=== PATIENT | male | born 1970 | race Caucasian/White ===

== ENCOUNTER 2023-11-25 13:51 | Emergency (ER) | payer MEDICAID, SELFPAY ==
[2023-11-25 14:13] VITALS: BP 144/79; PULSE 78; RESP 22; TEMP 36.6; O2SAT 98; BMI 29.8
[2023-11-25] MEDS: SIMETHICONE/SOD BICARB/CIT AC 1 EACH GRAN.EF.PK PO (15:08)
--- NOTE | 2023-11-25 17:16 | ED.GENADULT ---
HPI - General Adult General Date Seen: 11/25/23 Chief complaint: Difficulty Swallowing Stated complaint: Chicken piece stuck in throat-slight diff breath Time Seen by Provider: 11/25/23 14:58 History of Present Illness HPI narrative: This is a pleasant 53-year-old male presenting to the ER today with inability to swallow his oral secretions or any liquid or solid food. He was eating lunch today at about noon when he had a piece of chicken stuck. He can feel a foreign body sensation in his distal esophagus. Since then he has not been able to swallow. He is not really having any chest pain. No back pain. No pain in his throat. No trouble breathing. No coughing. No abdominal pain. He is generally healthy and not on any current medications. He does not take NSAIDs or ibuprofen. He recalls that he had an episode similar to this several years ago. He required endoscopy to remove the food bolus at that time. He was supposed to have an outpatient follow-up endoscopy for esophageal dilatation (apparently had a stricture), but by his own admission, he never followed up. He does not know of any previous diagnosis of GERD. It sounds like his previous food bolus was triggered by stricture rather than esophageal cancer. Related Data Previous Rx's ?Medication ?Instructions ?Recorded omeprazole 40 mg capsule,delayed 40 mg PO DAILY #30 caps 11/25/23 release Allergies Allergy/AdvReac Type Severity Reaction Status Date / Time No Known Drug Allergies Allergy Verified 11/25/23 14:15 Exam Narrative: Exam Narrative: Constitutional: Appears well-developed and well-nourished. Active. Polite. Protecting his airway. Phonation normal. Breathing easily. Non-toxic appearing. Spitting his oral secretions into an emesis bag because he cannot swallow his saliva. HENT: Initially over Head: Atraumatic. No signs of injury. Nose: No nasal discharge. Mouth/Throat: Mucous membranes are moist. Pharynx is normal. Tonsils symmetric. Uvula midline. Airway patent. Eyes: Conjunctivae normal and EOM are normal. Pupils are equal, round, and reactive to light. Right eye exhibits no discharge. Left eye exhibits no discharge. No icterus. Neck: Normal range of motion. Neck supple. No adenopathy. No stridor. Cardiovascular: Normal rate and regular rhythm. No murmur heard. No murmurs, rubs, or gallops. Brisk capillary refill Pulmonary/Chest: Effort normal. No stridor. No respiratory distress. No wheezes.No rhonchi. No rales. No retractions. No crepitus. Abdominal: Soft. Bowel sounds are normal. No distension. No mass. There is no tenderness. There is no rebound and no guarding. Musculoskeletal: Normal range of motion. No edema. No tenderness. No deformity. Neurological: Alert. Normal strength. No cranial nerve deficit or sensory deficit. Coordination normal. GCS eye subscore is 4. GCS verbal subscore is 5. GCS motor subscore is 6. Skin: Skin is warm. No rash noted. Const: Vital Signs, click to edit/add: Vital Signs - 24 hr 11/25/23 14:13 Temperature 97.8 F Pulse Rate [Right Pulse Oximeter] 78 Respiratory Rate 22 Blood Pressure [Ri ght Upper Arm] 144/79 H Pulse Oximetry 98 Oxygen Delivery Me thod Room Air Course Vital Signs Vital signs: Initial Vital Signs Temperature 97.8 F 11/25/23 14:13 Temperature Source Temporal Artery Scan 11/25/23 14:13 Pulse Rate 78 11/25/23 14:13 Pulse Rhythm Regular 11/25/23 14:13 Respiratory Rate 22 11/25/23 14:13 Blood Pressure 144/79 H 11/25/23 14:13 Blood Pressure Mean 100 11/25/23 14:13 Blood Pressure Position Sitting 11/25/23 14:13 Pulse Oximetry 98 11/25/23 14:13 Oxygen Delivery Method Room Air 11/25/23 14:13 Vital Signs Temperature 97.8 F 11/25/23 14:13 Pulse Rate 78 11/25/23 14:13 Respiratory Rate 22 11/25/23 14:13 Blood Pressure 144/79 H 11/25/23 14:13 Pulse Oximetry 98 11/25/23 14:13 Oxygen Delivery Method Room Air 11/25/23 14:13 Temperature 97.8 F 11/25/23 14:13 Pulse Rate 78 11/25/23 14:13 Respiratory Rate 22 11/25/23 14:13 Blood Pressure 144/79 H 11/25/23 14:13 Pulse Oximetry 98 11/25/23 14:13 Oxygen Delivery Method Room Air 11/25/23 14:13 Medications Administered Medications: Discontinued Medications Generic Name Dose Route Start Last Admin Trade Name Freq PRN Reason Stop Dose Admin Simethicone/Sodium Bicarb/Citric Ac 1 each 11/25/23 15:02 11/25/23 15:08 Simethicone/Sod Bicarb/Cit Ac 1 Each Gran.Ef.Pk PO 11/25/23 15:03 1 each ONCE ONE Administration Medical Decision Making MDM Narrative Medical decision making narrative: This patient presents for evaluation of a piece of chicken stuck in his esophagus. He felt that she gets stuck while he was eating lunch today around noon and has a sensation of a foreign body in his distal esophagus, and cannot swallow liquids, solids, or his own saliva.. This is consistent with esophageal bolus/foreign body esophagus. The offending bolus is likely a piece of chicken he was eating for lunch. We attempted passage with EZ gas. This medication was effective in passage of the bolus. He is feeling much better. He is tolerating oral liquids and applesauce without difficulty. No chest pain, trouble breathing, crepitus on exam or any other evidence for esophageal rupture or Boerhaave syndrome. Patient was able to drink a large amount of liquids and discomfort was gone indicating that the bolus has passed. We will start patient on scheduled PPI and have them follow up with GI this week for endoscopy. Unclear if this is a stricture, mass or other etiology for the esophageal narrowing and patient understands this. Will need formal diagnosis by endoscopy. Liquid diet and very soft diet until endoscopy. . Discharge Plan Discharge Clinical Impression: Food impaction of esophagus Patient Disposition: Home, Self-Care Condition: Stable Instructions: Food Impaction (ED) Additional Instructions: For the next 2 weeks stick to clear liquids and soft food such as pudding, applesauce, mashed potatoes). Avoid tough or chew we or sharp foods such as steak, chicken, or potato chips. Please call the [facility] [phone] to set up an appointment to see primary care for a follow-up check up. You should receive a phone call from the endoscopy clinic tomorrow to set up a follow-up appointment to have a camera down your esophagus. If they do not contact you by tomorrow, call the clinic to set up your endoscopy. We will start you on a medicine called Prilosec which will help reduce stomach acid because that is the likely cause for this stricture. If you have any trouble such as chest pain, fever, coughing or trouble breathing, more episodes of food stuck in her esophagus, return to the ER right away. Prescriptions: New omeprazole 40 mg capsule,delayed release(DR/EC) 40 mg PO DAILY Qty: 30 2RF Stand Alone Forms: [facility] Info Instructions
== END 2023-11-25 16:29 | disposition home or self-care (01) ==
PROVIDERS: Emergency Provider Emergency Medicine
DX: T18.128A Food in esophagus causing other injury, initial encounter (principal)
CPT/HCPCS: 99283

== ENCOUNTER 2023-11-27 10:55 | Outpatient (CLI) | payer MEDICAID, SELFPAY ==
--- NOTE | 2023-11-27 11:52 | W.ANESCHARGE ---
Anesthesia Charges Start Date/Time Anesthesia Start Date: 11/27/23 Anesthesia Start Time: 11:34 Stop Date/Time Anesthesia Stop Date: 11/27/23 Anesthesia Stop Time: 11:50
--- NOTE | 2023-11-27 11:58 | W.ANESCHARGE ---
Anesthesia Charges Start Date/Time Anesthesia Start Date: 11/27/23 Anesthesia Start Time: 11:34 Stop Date/Time Anesthesia Stop Date: 11/27/23 Anesthesia Stop Time: 11:50
== END 2023-11-27 10:56 | disposition home or self-care (01) ==
LOC: OP CLINIC 10:56
PROVIDERS: Visit Provider Internal Medicine
DX: R13.10 Dysphagia, unspecified (principal)
CPT/HCPCS: 00731; 43239; 88305; J2704